=== PATIENT | female | born 1980 | race Two or more races ===

== ENCOUNTER 2019-09-30 12:28 | Outpatient (CLI) | payer SELFPAY ==
[2019-09-30 16:46] LABS: CALCIUM, SERUM 9.1 mg/dL (8.5-10.1); CREATININE 0.7 mg/dL (0.6-1.3); POTASSIUM 4.1 mmol/L (3.5-5.1)
[2019-10-02 01:07] LABS: CMV, IgG >10.00 U/mL (0.00-0.59); CMV, IgM <30.0 AU/mL (0.0-29.9)
== END 2019-09-30 23:59 | disposition home or self-care (01) ==
LOC: LAB 12:28
DX: R59.0 Localized enlarged lymph nodes (principal); R53.83 Other fatigue; R50.9 Fever, unspecified; H66.90 Otitis media, unspecified, unspecified ear
CPT/HCPCS: 36415; 80048-TC; 85652-TC; 86644; 86645

== ENCOUNTER 2021-01-10 01:48 | Emergency (ER) | payer OTHER ==
[~2021-01-10] VITALS: Ht 177.8 cm; Wt 74.8 kg
[2021-01-10 01:56] VITALS: BP 132/67
== END 2021-01-10 02:31 | disposition home or self-care (01) ==
LOC: ER 01:53
DX: J02.9 Acute pharyngitis, unspecified (principal); Z20.822 Contact with and (suspected) exposure to COVID-19; Z88.6 Allergy status to analgesic agent
CPT/HCPCS: 87426; 99283; C9803